=== PATIENT | male | born 1965 | race Hispanic/Latino ===

== ENCOUNTER 2023-12-31 02:10 | Emergency (ER) | payer SELFPAY ==
[2023-12-31 02:25] LABS: ALT/SGPT 32 U/L (16-61); AST/SGOT 18 U/L (15-37); Albumin 3.4 g/dL (3.4-5.0); Albumin/Globulin Ratio 1.1 (1.1-1.8); Alkaline Phosphatase 65 U/L (45-117); BUN Blood Urea Nitrogen 16 mg/dL (7-18); Bicarbonate 24 mEq/L (21-32); Bilirubin Total 0.4 mg/dL (0.2-1.0); Glomerular Filtration Rate 85 ml/min (=/>90); Glucose Level 141 mg/dL (74-106); NT PRO-BNP 53 pg/mL (<125); Protein, Total 6.4 g/dL (6.4-8.2); Sodium Level 139 mEq/L (136-145); Troponin High Sensitivity 5.1 pg/mL (<58.9)
[2023-12-31 02:26] LABS: Bilirubin Direct < 0.2 mg/dL (0-0.2); Bilirubin Indirect, Calculated 0.2 mg/dL (0.2-0.8)
[2023-12-31 02:28] LABS: PT Prothrombin Time 10.8 SECONDS (9.4-12.5); Protime INR 0.96
[2023-12-31 02:30] LABS: Absolute Lymphocytes (CBC) 0.8 K/uL (0.7-4.9); Absolute Monocytes 0.3 K/uL (0.1-1.3); Absolute Neutrophil 3.5 K/uL (1.8-8.0); Basophils % 0.4 % (0-1.3); Eosinophils % 1.1 % (0-4.4); Hemoglobin 14.2 g/dL (13.6-17.9); Lymphocytes % 17.6 % (15.3-44.8); MCHC 33.8 g/dL (32.0-36.0); MCV 94.6 fL (80-100); MPV 9.2 fL (7.6-11.3); Monocytes % 5.5 % (3.3-12.3); Neutrophils % 75.4 % (41.7-73.7); Platelets 135 thou/uL (152-406); RBC Red Blood Cell Count 4.44 M/uL (4.33-5.43); Red Cell Distribution Width 14.1 % (12.1-15.2)
[2023-12-31 02:35] LABS: Lipase 65 U/L (13-75)
--- NOTE | 2023-12-31 03:02 | RAD REPORT ---
EXAM DESCRIPTION: Abdomen Exam Limited CLINICAL HISTORY: ABD PAIN COMPARISON: None. TECHNIQUE: Real-time sonographic images of the right upper abdomen were obtained using a curved multi hertz transducer. FINDINGS: Liver: Cysts in the visualized liver. Hepatopedal flow in the portal vein. Findings confirmed with color and spectral Doppler imaging. The common bile duct measures 0.3 cm. Gallbladder: Shadowing echogenic structures in the gallbladder lumen. Gallbladder wall thickness of 0.2 cm. Sonographic Hamilton's sign is negative. IMPRESSION: 1. Cholelithiasis without other sonographic evidence of acute cholecystitis. Electronically signed by: hCan Mcelroy DO 12/31/2023 02:57 AM [facility] [employer] [id number] Due to temporary technical issues with the PACS/Power sc[employer] reporting system, reports are being sign ed by the in-house radiologist without review as a courtesy to ensure prompt reporting the interpreting rad iologist is fully responsible for the content of the report. Transcribed Date/Time: 12/31/2023 3:02 AM
--- NOTE | 2023-12-31 03:29 | RAD REPORT ---
EXAM DESCRIPTION: Chest Single View CLINICAL HISTORY: Abdominal distention;Pain COMPARISON: None. FINDINGS: 1 view(s) of the chest. Tubes and lines: Leads overlie the chest. Cardiomediastinal silhouette: Normal size and contour. Lungs: No consolidation, pneumothorax, or pleural effusion. Bones: No acute osseous abnormality. Upper abdomen: No abnormality identified. IMPRESSION: 1. No acute pulmonary process identified. Electronically signed by: Chan Mcelroy DO 12/31/2023 02:58 AM [facility] [id number] Due to temporary technical issues with the PACS/[employer] reporting system, reports are being josé miguel d by the in-house radiologist without review as a courtesy to ensure prompt reporting the interpreting radiologist is fully responsible for the content of the report. Transcribed Date/Time: 12/31/2023 3:29 AM
--- NOTE | 2023-12-31 04:36 | ER ---
Nurse's Notes [facility] Name: Ismael Erickson Age: 58 yrs Sex: Male : 1965 Arrival Date: 12/31/2023 Time: 01:26 Bed 15 Private MD: Diagnosis: Acute gastritis;Acute gastritis without bleeding;Epigastric pain;Other cholelithiasis without obstruction Presentation: 12/30 00:45 Chief complaint: Patient states: MID EPIGASTRIC PAIN AFTER EATING SOME TACOS WITH SPICY ha1 SAUCE. 00:45 Coronavirus screen: Vaccine status: Patient reports being unvaccinated. Ebola Screen: ha1 No symptoms or risks identified at this time. Initial Sepsis Screen: Does the patient meet any 2 criteria? No. Patient's initial sepsis screen is negative. Does the patient have a suspected source of infection? No. Patient's initial sepsis screen is negative. Risk Assessment: Do you want to hurt yourself or someone else? Patient reports no desire to harm self or others. Onset of symptoms was December 31, 2023. 00:45 Method Of Arrival: Ambulatory ha1 00:45 Acuity: DANDRE 3 ha1 Triage Assessment: 01:05 General: Appears comfortable, Behavior is calm, cooperative. Pain: Complains of pain in ha1 epigastric area Pain does not radiate. Pain currently is 5 out of 10 on a pain scale. Neuro: Level of Consciousness is awake, alert, obeys commands, Oriented to person, place, time, situation. Cardiovascular: Patient's skin is warm and dry. Respiratory: Airway is patent Respiratory effort is even, unlabored, Respiratory pattern is regular, symmetrical. Historical: - Allergies: 01:05 No Known Allergies; ha1 - PMHx: 01:05 Hypertensive disorder; ha1 - Immunization history:: Adult Immunizations up to date. - Infectious Disease History:: Denies. - Social history:: Smoking status: Patient denies any tobacco usage or history of. Screenin:50 [facility] ED Fall Risk Assessment (Adult) History of falling in the last 3 months, rg5 including since admission No falls in past 3 months (0 pts) Confusion or Disorientation No (0 pts) Intoxicated or Sedated No (0 pts) Impaired Gait No (0 pts) Mobility Assist Device Used No (0 pt) Altered Elimination No (0 pt) Score/Fall Risk Level 0 - 2 = Low Risk Oriented to surroundings, Maintained a safe environment, Used ambulatory aids as needed (educated on \T\ assisted with). Abuse screen: Denies threats or abuse. Nutritional screening: No deficits noted. Tuberculosis screening: No symptoms or risk factors identified. Assessment: 01:50 General: Appears in no apparent distress. Behavior is calm, cooperative, appropriate rg5 for age. 01:50 Pain: Complains of pain in abdomen. Neuro: Level of Consciousness is awake, alert, rg5 obeys commands. Cardiovascular: Heart tones S1 S2 Patient's skin is warm and dry. Respiratory: Airway is patent Trachea midline Respiratory effort is even, unlabored, Respiratory pattern is regular, symmetrical. GI: Abdomen is round non-distended, Bowel sounds present X 4 quads. Abd is soft and non tender X 4 quads. Reports lower abdominal pain, upper abdominal pain. : No signs and/or symptoms were reported regarding the genitourinary system. EENT: No deficits noted. Derm: Skin is intact, Skin is dry, Skin is normal. Musculoskeletal: Circulation, motion, and sensation intact. Range of motion:. 02:20 Reassessment: Patient and/or family updated on plan of care and expected duration. Pain rg5 level reassessed. Patient is alert, oriented x 3, equal unlabored respirations, skin warm/dry/pink. 03:00 Reassessment: Patient and/or family updated on plan of care and expected duration. Pain rg5 level reassessed. Patient is alert, oriented x 3, equal unlabored respirations, skin warm/dry/pink. 04:10 Reassessment: Patient and/or family updated on plan of care and expected duration. Pain rg5 level reassessed. Patient is alert, oriented x 3, equal unlabored respirations, skin warm/dry/pink. Patient states symptoms have improved. 05:00 Reassessment: Patient and/or family updated on plan of care and expected duration. Pain rg5 level reassessed. Patient states feeling better. Patient states symptoms have improved. Vital Signs: 00:45 BP 141 / 84; Pulse 59; Resp 17 S; Temp 97.6(T); Pulse Ox 98% on R/A; Weight 81.65 kg; ha1 Height 5 ft. 9 in. ; Pain 5/10; 01:49 BP 141 / 84; Pulse 65; Resp 18; Temp 98(O); Pulse Ox 97% on R/A; rg5 02:30 BP 142 / 84; Pulse 60; Resp 18; Pulse Ox 99% on R/A; rg5 03:30 BP 137 / 87; Pulse 60; Resp 17; Pulse Ox 99% on R/A; rg5 04:35 BP 141 / 76; Pulse 56; Resp 17; Temp 98; Pulse Ox 99% on R/A; Pain 2/10; rg5 00:45 Body Mass Index 26.58 (81.65 kg, 175.26 cm) ha1 00:45 Pain Scale: Adult ha1 04:35 Pain Scale: Adult rg5 ED Course: 01:05 Kwame Hamm, RN is Primary Nurse. rg5 01:05 Triage completed. ha1 01:26 Patient arrived in ED. jj6 01:30 Inserted saline lock: 20 gauge in right antecubital area, using aseptic technique. af3 Blood collected. Flushed with 10 mL NS. 01:48 Cesar Grijalva MD is Attending Physician. inocente 01:49 Arm band placed on right wrist. rg5 01:50 No provider procedures requiring assistance completed. rg5 01:50 Patient has correct armband on for positive identification. Bed in low position. Call rg5 light in reach. Side rails up X 1. Door closed. Noise minimized. Warm blanket given. 02:18 US Abdomen Limited In Process Unspecified. EDMS 02:52 XRAY Chest (1 view) In Process Unspecified. EDMS 04:03 CT Abd/Pelvis - PO and IV Contrast In Process Unspecified. EDMS 04:35 Nimco Woodward MD is Referral Physician. inocente 04:35 Ton Cavazos MD is Referral Physician. inocente 05:13 IV discontinued, bleeding controlled, No redness/swelling at site. Pressure dressing rg5 applied. 05:13 Provided Education on: post er care. rg5 Administered Medications: 01:35 Drug: morphine IVP or IV 4 mg IVP once over 4 mins Route: IVP; Infused Over: 4 mins; rg5 Site: right antecubital; 03:36 Follow up: Response: No adverse reaction; Pain is decreased rg5 01:35 Drug: Ondansetron IVP 4 mg IVP once; over 2 minutes Route: IVP; Site: right antecubital;rg5 03:36 Follow up: Response: No adverse reaction rg5 01:35 Drug: Pantoprazole IVP 80 mg IVP once Route: IVP; Site: right antecubital; rg5 03:36 Follow up: Response: No adverse reaction rg5 01:36 Drug: GI Cocktail without - (Maalox PO 30 ml, Lidocaine Mucous Membrane 2 % 15 rg5 ml) PO once Route: PO; 03:36 Follow up: Response: No adverse reaction; Pain is decreased rg5 Medication: 01:50 VIS not applicable for this client. rg5 Outcome: 04:36 Discharge ordered by . inocente 05:14 Discharged to home ambulatory, rg5 05:14 Condition: stable 05:14 Discharge instructions given to patient, Instructed on discharge instructions, follow up and referral plans. Demonstrated understanding of instructions, follow-up care, medications, Prescriptions given X 4, 05:15 Patient left the ED. rg5 Signatures: Dispatcher [employer] EDMS Cesar Grijalva MD MD cha Jeffries, Jennifer jj6 Sheila Khan, RN RN ha1 Kwame Hamm RN RN rg5 Court Ty
--- NOTE | 2023-12-31 04:36 | EDPHYS ---
Physician Documentation [facility] Name: Ismael Erickson Age: 58 yrs Sex: Male : 1965 Arrival Date: 12/31/2023 Time: 01:26 Bed 15 Private MD: ED Physician Cesar Grijalva HPI: 12/30 01:06 This 58 yrs old Male presents to ER via Ambulatory with complaints of inocente Epigastric Pain, Abdominal Pain. 01:06 The patient presents with abdominal pain in the epigastric area, in the upper abdomen, inocente abdominal distention in the upper abdomen, in the lower abdomen. Onset: The symptoms/episode began/occurred yesterday, 1 day(s) ago. The symptoms do not radiate. Associated signs and symptoms: none. The symptoms are described as crampy. Modifying factors: The symptoms are alleviated by nothing, the symptoms are aggravated by food, nothing. Severity of pain: At its worst the pain was mild moderate in the emergency department the pain is unchanged. The patient has not experienced similar symptoms in the past. Historical: - Allergies: 01:05 No Known Allergies; ha1 - PMHx: 01:05 Hypertensive disorder; ha1 - Immunization history:: Adult Immunizations up to date. - Infectious Disease History:: Denies. - Social history:: Smoking status: Patient denies any tobacco usage or history of. ROS: 01:07 Constitutional: Negative for fever, chills, and weight loss, Eyes: Negative for injury, inocente pain, redness, and discharge, ENT: Negative for injury, pain, and discharge, Neck: Negative for injury, pain, and swelling, Cardiovascular: Negative for chest pain, palpitations, and edema, Respiratory: Negative for shortness of breath, cough, wheezing, and pleuritic chest pain, Back: Negative for injury and pain, : Negative for injury, bleeding, discharge, and swelling, MS/Extremity: Negative for injury and deformity, Skin: Negative for injury, rash, and discoloration, Neuro: Negative for headache, weakness, numbness, tingling, and seizure, Psych: Negative for depression, anxiety, suicide ideation, homicidal ideation, and hallucinations, Allergy/Immunology: Negative for hives, rash, and allergies, Endocrine: Negative for neck swelling, polydipsia, polyuria, polyphagia, and marked weight changes, Hematologic/Lymphatic: Negative for swollen nodes, abnormal bleeding, and unusual bruising, 01:07 Abdomen/GI: Positive for abdominal pain, abdominal cramps, abdominal distension, of the epigastric area, right upper quadrant and left upper quadrant, Exam: :07 Constitutional: This is a well developed, well nourished patient who is awake, alert, inocente and in no acute distress. Head/Face: Normocephalic, atraumatic. Eyes: Pupils equal round and reactive to light, extra-ocular motions intact. Lids and lashes normal. Conjunctiva and sclera are non-icteric and not injected. Cornea within normal limits. Periorbital areas with no swelling, redness, or edema. ENT: Nares patent. No nasal discharge, no septal abnormalities noted. Tympanic membranes are normal and external auditory canals are clear. Oropharynx with no redness, swelling, or masses, exudates, or evidence of obstruction, uvula midline. Mucous membranes moist. Neck: Trachea midline, no thyromegaly or masses palpated, and no cervical lymphadenopathy. Supple, full range of motion without nuchal rigidity, or vertebral point tenderness. No Meningismus. Chest/axilla: Normal chest wall appearance and motion. Nontender with no deformity. No lesions are appreciated. Cardiovascular: Regular rate and rhythm with a normal S1 and S2. No gallops, murmurs, or rubs. Normal PMI, no JVD. No pulse deficits. Respiratory: Lungs have equal breath sounds bilaterally, clear to auscultation and percussion. No rales, rhonchi or wheezes noted. No increased work of breathing, no retractions or nasal flaring. Back: No spinal tenderness. No costovertebral tenderness. Full range of motion. Male : Normal genitalia with no discharge or lesions. Skin: Warm, dry with normal turgor. Normal color with no rashes, no lesions, and no evidence of cellulitis. MS/ Extremity: Pulses equal, no cyanosis. Neurovascular intact. Full, normal range of motion. Neuro: Awake and alert, GCS 15, oriented to person, place, time, and situation. Cranial nerves II-XII grossly intact. Motor strength 5/5 in all extremities. Sensory grossly intact. Cerebellar exam normal. Normal gait. Psych: Awake, alert, with orientation to person, place and time. Behavior, mood, and affect are within normal limits. 01:07 Abdomen/GI: Inspection: abdomen appears normal, Bowel sounds: normal, Palpation: mild abdominal tenderness, in the epigastric area, Liver: no appreciated palpable abnormalities, Hernia: not appreciated, 01:32 ECG was reviewed by the Attending Physician. [facility] Vital Signs: 00:45 BP 141 / 84; Pulse 59; Resp 17 S; Temp 97.6(T); Pulse Ox 98% on R/A; Weight 81.65 kg; ha1 Height 5 ft. 9 in. ; Pain 5/10; 01:49 BP 141 / 84; Pulse 65; Resp 18; Temp 98(O); Pulse Ox 97% on R/A; rg5 02:30 BP 142 / 84; Pulse 60; Resp 18; Pulse Ox 99% on R/A; rg5 03:30 BP 137 / 87; Pulse 60; Resp 17; Pulse Ox 99% on R/A; rg5 04:35 BP 141 / 76; Pulse 56; Resp 17; Temp 98; Pulse Ox 99% on R/A; Pain 2/10; rg5 00:45 Body Mass Index 26.58 (81.65 kg, 175.26 cm) ha1 00:45 Pain Scale: Adult ha1 04:35 Pain Scale: Adult rg5 MDM: 01:09 Differential diagnosis: bowel obstruction, cholecystitis, Cholelithiasis, gastritis, inocente gastroesophageal reflux disease, GI Bleed, non-specific abd pain, pancreatitis, Peptic Ulcer Disease. Data reviewed: vital signs, nurses notes, lab test result(s), EKG, radiologic studies, CT scan, plain films. Consideration of Admission/Observation Escalation of care including admission/observation considered. I considered the following discharge prescriptions or medication management in the emergency department Medications were administered in the Emergency Department. See MAR. Independent interpretation of the following test(s) in the Emergency Department EKG: See my EKG interpretation above. Test considered but Not performed: MRI: no mrcp. Historians other than the Patient: Spouse/Significant Other: well informed. Care significantly affected by the following chronic conditions: Hypertension, gastritis, gastric ulcer. 01:48 Medical Screening Exam initiated [facility] 12/30 01:05 Order name: Basic Metabolic Panel; Complete Time: 02:51 [facility] 12/30 01:05 Order name: CBC with Diff; Complete Time: 02:51 [facility] 12/30 01:05 Order name: LFT's; Complete Time: 02:51 [facility] 12/30 01:05 Order name: Magnesium; Complete Time: 02:51 [facility] 12/30 01:05 Order name: NT PRO-BNP; Complete Time: 02:51 [facility] 12/30 01:05 Order name: PT-INR; Complete Time: 02:51 [facility] 12/30 01:05 Order name: Troponin HS; Complete Time: 02:51 [facility] 12/30 01:05 Order name: Lipase; Complete Time: 02:51 [facility] 12/30 01:05 Order name: XRAY Chest (1 view) [facility] 12/30 01:05 Order name: CT Abd/Pelvis - PO and IV Contrast [facility] 12/30 01:07 Order name: US Abdomen Limited [facility] 12/30 01:05 Order name: Cardiac monitoring; Complete Time: 01:21 [facility] 12/30 01:05 Order name: EKG - Nurse/Tech; Complete Time: 01:21 [facility] 12/30 01:05 Order name: IV Saline Lock; Complete Time: 01:36 [facility] 12/30 01:05 Order name: Labs collected and sent; Complete Time: 01:30 [facility] 12/30 01:05 Order name: O2 Per Protocol; Complete Time: 01:24 [facility] 12/30 01:05 Order name: O2 Sat Monitoring; Complete Time: 01:24 [facility] EC:32 Rate is 52 beats/min. Rhythm is regular. QRS Vega is Normal. [place] interval is normal. QRS inocente interval is normal. QT interval is normal. No Q waves. T waves are Normal. No ST changes noted. Clinical impression: Sinus bradycardia and No evidence of ischemia. Interpreted by me. Reviewed by me. Administered Medications: 01:35 Drug: morphine IVP or IV 4 mg IVP once over 4 mins Route: IVP; Infused Over: 4 mins; rg5 Site: right antecubital; 03:36 Follow up: Response: No adverse reaction; Pain is decreased rg5 01:35 Drug: Ondansetron IVP 4 mg IVP once; over 2 minutes Route: IVP; Site: right antecubital;rg5 03:36 Follow up: Response: No adverse reaction rg5 01:35 Drug: Pantoprazole IVP 80 mg IVP once Route: IVP; Site: right antecubital; rg5 03:36 Follow up: Response: No adverse reaction rg5 01:36 Drug: GI Cocktail without - (Maalox PO 30 ml, Lidocaine Mucous Membrane 2 % 15 rg5 ml) PO once Route: PO; 03:36 Follow up: Response: No adverse reaction; Pain is decreased rg5 Disposition Summary: 12/31/23 04:36 Discharge Ordered Notes: Location: Home [facility] Problem: new inocente Symptoms: have improved inocente Condition: Stable inocente Diagnosis - Acute gastritis inocente - Acute gastritis without bleeding inocente - Epigastric pain inocente - Other cholelithiasis without obstruction inocente Followup: inocente - With: Private Physician - When: 2 - 3 days - Reason: Recheck today's complaints, Continuance of care, Re-evaluation by your physician Followup: inocente - With: Nimco Woodward MD - When: 2 - 3 days - Reason: Recheck today's complaints, Re-evaluation by your physician Followup: inocente - With: Ton Cavazos MD - When: 2 - 3 days - Reason: Recheck today's complaints, Re-evaluation by your physician Discharge Instructions: - Discharge Summary Sheet inocente - Abdominal Pain, Adult inocente - Gastritis, Adult inocente - Gastritis, Adult, [id number] inocente - Cholelithiasis inocente - Cholelithiasis, [id number] [facility] Forms: - Medication Reconciliation Form [facility] - Antibiotic Education [facility] - Prescription Opioid Use [facility] - Patient Portal Instructions [facility] - Leadership Thank You Letter [facility] Prescriptions: - ondansetron 4 mg Oral Tablet,disintegrating - take 1 tablet ORAL route every 6 to 8 hours; 20 tablet; Refills: 0, Product [facility] Selection Permitted - Carafate 1 gram Oral Tablet - take 1 tablet ORAL route 4 times per day take on an empty stomach, beginning on inocente waking and last dose at bedtime; 100 tablet; Refills: 0, Product Selection Permitted - Protonix 40 mg Oral Tablet - take 1 tablet ORAL route once daily; 30 tablet; Refills: 0, Product Selection [facility] Permitted - dicyclomine 20 mg Oral tablet - take 1 tablet ORAL route 4 times per day; 28 tablet; Refills: 0, Product [facility] Selection Permitted Signatures: Dispatcher [employer] Cesar White MD MD cha Ayala, Heidy, RN RN ha1 Kwame Hamm RN RN rg5 Corrections: (The following items were deleted from the chart) 02:12 02:12 BASIC METABOLIC PANEL+C.LAB.BRZ ordered. EDMS EDMS 02:12 02:12 CBC+H.LAB.BRZ ordered. EDMS EDMS 02:12 02:12 HEPATIC FUNCTION+C.LAB.BRZ ordered. EDMS EDMS 02:12 02:12 MAGNESIUM+C.LAB.BRZ ordered. EDMS EDMS 02:12 02:12 PROBNP+C.LAB.BRZ ordered. EDMS EDMS 02:12 02:12 PROTIME (+INR)+COAG.LAB.BRZ ordered. EDMS EDMS 02:12 02:12 Troponin High Sensitivity+C.LAB.BRZ ordered. EDMS EDMS 02:12 02:12 LIPASE+C.LAB.BRZ ordered. EDMS EDMS 02:12 02:12 Chest Single View+RAD.RAD.BRZ ordered. EDMS EDMS 02:12 02:12 Abdomen Pelvis W Con+CT.RAD.BRZ ordered. EDMS EDMS 02:12 02:12 Abdomen Limited+US.RAD.BRZ ordered. EDMS EDMS
[2023-12-31 05:19] VITALS: O2SAT 99
[2023-12-31 05:26] VITALS: BP 141/76; TEMP 98
--- NOTE | 2023-12-31 15:09 | RAD REPORT ---
EXAMINATION: CT ABDOMEN AND PELVIS WITH CONTRAST CLINICAL INDICATION: Male, 58 years old.ABD PAIN TECHNIQUE: CT abdomen and pelvis was performed, after the administration of IV contrast, as per [facility] protocol. Axial, sagittal and coronal reconstructions were obtained. One or more of the following dose reduction techniques were used: Automated exposure control, adjustment of the mA and/o r kV according to patient size, and/or iterative reconstruction. Unless otherwise specified, incidental findings do not require dedicated imaging follow-up. [id number]. COMPARISON: No prior exam. FINDINGS: LOWER CHEST: Coronary stent. Mild circumferential thickening distal esophagus. LIVER: Several low-density liver lesions are noted which have benign imaging features. GALLBLADDER/BILE DUCT: No biliary ductal dilatation.?Cholelithiasis. PANCREAS: No significant abnormality. SPLEEN: Normal size. No focal lesion. ADRENALS: Normal; no mass. KIDNEYS AND URETERS: Normal size and contour. No hydronephrosis. Bilateral renal lesions which are ei ther benign in appearance or too small to accurately characterize but statistically benign. GASTROINTESTINAL TRACT: Stomach is non-dilated. Small bowel has normal course and caliber. No colonic wall thickening or pericolonic inflammatory changes. Moderate stool. Normal appendix. PERITONEUM: No ascites. Small fat-containing inguinal hernias. Small fat-containing inguinal hernias. LYMPH NODES: No lymphadenopathy. ABDOMINAL AORTA AND OTHER VESSELS: Normal caliber aorta and IVC. URINARY BLADDER: Normal contour. REPRODUCTIVE ORGANS: No pathologic process MUSCULOSKELETAL: No acute or suspicious osseous abnormality.T11 butterfly vertebral body. ADDITIONAL FINDINGS: None. IMPRESSION: No acute or significant abnormalities seen in the abdomen or pelvis.
--- NOTE | 2024-01-02 12:25 | EKG ---
Test Date: 2023-12-31 Test Time: 02:18:27 Surplus Property Disposal Agent: AF MEASUREMENT RESULTS: Intervals: Rate: 52 ME: 178 QRSD: 108 QT: 476 QTc: 442 [place]: P: 59 ME: 178 QRS: -30 T: 37 INTERPRETIVE STATEMENTS: Sinus bradycardia Left axis deviation Nonspecific T wave abnormality Abnormal ECG No previous ECG available for comparison Electronically Signed On 01-02-24 12:18:47 BAND AID MACHINE OPERATOR by Giovany Davis
== END 2023-12-31 05:15 | disposition home or self-care (01) ==
LOC: ER 02:10
DX: K29.00 Acute gastritis without bleeding (principal); K80.80 Other cholelithiasis without obstruction
CPT/HCPCS: 36415; 71045; 74177; 76705; 80048; 80076; 83690; 83735; 83880; 84484; 85025; 85610; 93005; 96374; 96375; 99284; Q9967